=== PATIENT | female | born 1965 | race Hispanic/Latino ===

== ENCOUNTER 2024-05-13 18:25 | Emergency (ER) | payer OTHER ==
[~2024-05-13] VITALS: Ht 144.8 cm; Wt 88.3 kg
[2024-05-13 18:31] VITALS: PULSE 74; RESP 16; TEMP 98.1
[2024-05-13] MEDS ORDERED: ACTOS15 MG PO (18:46)
[2024-05-13] MEDS ORDERED: METFORMIN HCL850 MG PO (18:46)
[2024-05-13] MEDS ORDERED: NOVOLOG100 UNIT/1 SC (18:46)
[2024-05-13 20:19] VITALS: BP 138/68; PULSE 68; RESP 16; TEMP 97.9; O2SAT 100
== END 2024-05-13 20:22 | disposition home or self-care (01) ==
LOC: FSED 18:32
DX: S40.011A Contusion of right shoulder, initial encounter (principal); W01.0XXA Fall on same level from slipping, tripping and stumbling without subsequent striking against object, initial encounter; Y93.01 Activity, walking, marching and hiking; Y92.89 Other specified places as the place of occurrence of the external cause; E11.9 Type 2 diabetes mellitus without complications
CPT/HCPCS: 99283